=== PATIENT | female | born 1975 | race Caucasian/White ===

== ENCOUNTER 2021-09-27 00:51 | Day surgery (SDC) | payer OTHER, SELFPAY ==
[2021-09-17 10:02] VITALS: BMI 35.5
--- NOTE | 2021-09-27 08:18 | WPDANESEPPF ---
Anes - Initial Pre Proc Eval Procedure: Operation Date: 09/27/21 11:30 Proposed Procedures p Screening Colonoscopy - Bartolo Marina MD Date/Time: 09/27/21 08:18 Surgeon: Bartolo Marina MD Pre Op Diagnosis: neoplasm screening Patient Data Age: 46 Gender: F Height: 1.68 m Weight: 99.8 kg Allergies Allergy/AdvReac Type Severity Reaction Status Date / Time Quinolones Allergy Mild Swelling Verified 09/27/21 10:31 cefuroxime Allergy Unknown Skin Verified 09/27/21 10:31 Reaction ciprofloxacin Allergy Unknown Unknown Verified 09/27/21 10:31 erythromycin base Allergy Unknown Skin Verified 09/27/21 10:31 Reaction sulfamethizole Allergy Unknown Skin Verified 09/27/21 10:31 Reaction tetanus toxoid, adsorbed Allergy Unknown ?REACTION--HAPPENED Verified 09/27/21 10:31 CHILD Tetanus Vaccines and Toxoid Allergy Unknown Unknown Verified 09/27/21 10:31 NKFA Allergy Unknown Unknown Uncoded 09/27/21 10:31 Home Medications Medication Instructions Recorded Confirmed Type cyclobenzaprine 10 mg tablet 10 mg PO TID PRN #30 tablet 09/10/20 09/27/21 Rx meloxicam 15 mg tablet 15 mg PO DAILY #90 tablet 12/31/20 09/27/21 Rx albuterol sulfate 90 mcg/actuation 2 puff INHALATION Q4H PRN #8.5 g 07/12/21 09/27/21 Rx aerosol inhaler alprazolam 0.25 mg tablet 0.25 mg PO TID PRN #30 tablet 07/12/21 09/27/21 Rx clonidine HCl 0.1 mg tablet 0.1 mg PO .PRN tablet 07/12/21 09/27/21 History pantoprazole 40 mg tablet,delayed 40 mg PO BID 90 Days #180 tablet 07/12/21 09/27/21 Rx release tramadol 50 mg tablet 100 mg PO Q8H PRN tablet 07/12/21 09/27/21 History duloxetine 30 mg capsule,delayed 30 mg PO DAILY #90 cap 08/19/21 09/27/21 Rx release Patient hx anesthesia problems: none Family hx anesthesia problems: none Results Review: All pre-operative results and documents have been reviewed as part of the pre-operative evaluation. 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 Surgical History Surgical History (Updated 04/29/21 @ 12:48 by Raj Ventura MD) H/O abdominoplasty H/O hand surgery H/O hysterectomy for benign disease H/O unilateral oophorectomy History of bladder suspension procedure Family History Family History (Updated 01/09/18 @ 12:06 by DOCTOR UNKNOWN) Father Acute myocardial infarction Family history of cardiovascular disease Other Hypertension Social History Social History (Reviewed 07/12/21 @ 11:53 by Latonia Castellanos [facility]) Smoking status: Never smoker Alcohol intake: current Drinks per week: 4 Alcohol use details: 1-2 glasses of wine 3 times weekly Substance use: current Substance use type: marijuana Other substance usage details: daily use Living arrangements: with family Spiritual care concerns: No Anes - Eval Final PreProcedure Day of Procedure 09/27/21 08:18 Patient weight: obese Heart: regular rate and rhythm Lungs: clear to auscultation and normal air movement Airway: Mallampati scale class II Neurological: alert and oriented Last oral intake: >/= 8 hours ASA classification: III Emergent: no Anesthetic plan: proceed Anesthesia type and monitoring: general GIVS and standard monitoring Results Review: All pre-operative results and documents have been reviewed as part of the pre-operative evaluation. Informed Consent: The patient's anesthetic plan and its attendant risks and benefits were discussed with the patient/family/POA. Questions were solicited and answers provided to the satisfaction of the patient/family/POA.
[2021-09-27 10:25] VITALS: BP 136/75; PULSE 60; RESP 18; TEMP 36.6; O2SAT 100; BMI 35.0
[2021-09-27] MEDS: LACTATED RINGERS 1,000 ML 150 ML IV CONT (10:42)
--- NOTE | 2021-09-27 11:07 | PM.HPGS ---
History of Present Illness History of Present Illness Consent: Risks, benefits, and alternatives have been discussed and questions answered. Patient agrees to proceed with procedure. Chief complaint: neoplasm screening Narrative: An Paz is a 46 year old female here for first screening colonoscopy Review of Systems Constitutional: Constitutional: Denies headache(s) and Denies weakness Eyes: Eyes: Denies blurry vision ENT: Reports Normal hearing present, Denies headache(s) and Denies neck pain Cardiovascular: Cardiovascular: Denies chest pain and Denies dyspnea Respiratory: Respiratory: Denies dyspnea Gastrointestinal: Gastrointestinal: Reports no additional gastrointestinal complaints Genitourinary: Genitourinary: Denies dysuria Musculoskeletal: Musculoskeletal: Denies neck pain Integumentary/Breasts: Skin/Breast: Denies dry skin Neurologic: Reports Normal hearing present, Denies headache(s) and Denies weakness Psychiatric: Psychiatric: Denies anxiety Endocrine: Endocrine: Denies change in body appearance Hematologic/Lymphatic: Hematologic/Lymphatic: Denies easy bleeding Allergic/Immunologic: Allergic/Immunologic: Denies urticaria PMF Past Medical History Medical History (Updated 09/27/21 @ 11:08 by Bartolo Marina MD) Asthma, mild intermittent Chronic pain Colon cancer screening GERD (gastroesophageal reflux disease) Obesity 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 Surgical History Surgical History (Updated 04/29/21 @ 12:48 by Raj Ventura MD) H/O abdominoplasty H/O hand surgery H/O hysterectomy for benign disease H/O unilateral oophorectomy History of bladder suspension procedure Family History Family History (Updated 01/09/18 @ 12:06 by DOCTOR UNKNOWN) Father Acute myocardial infarction Family history of cardiovascular disease Other Hypertension Social History Social History Smoking status: Never smoker Alcohol intake: current Drinks per week: 4 Alcohol use details: 1-2 glasses of wine 3 times weekly Substance use: current Substance use type: marijuana Other substance usage details: daily use Living arrangements: with family Spiritual care concerns: No Meds Home Medications and Allergies Home Medications Medication Instructions Recorded Confirmed Type cyclobenzaprine 10 mg tablet 10 mg PO TID PRN #30 tablet 09/10/20 09/27/21 Rx meloxicam 15 mg tablet 15 mg PO DAILY #90 tablet 12/31/20 09/27/21 Rx albuterol sulfate 90 mcg/actuation 2 puff INHALATION Q4H PRN #8.5 g 07/12/21 09/27/21 Rx aerosol inhaler alprazolam 0.25 mg tablet 0.25 mg PO TID PRN #30 tablet 07/12/21 09/27/21 Rx clonidine HCl 0.1 mg tablet 0.1 mg PO .PRN tablet 07/12/21 09/27/21 History pantoprazole 40 mg tablet,delayed 40 mg PO BID 90 Days #180 tablet 07/12/21 09/27/21 Rx release tramadol 50 mg tablet 100 mg PO Q8H PRN tablet 07/12/21 09/27/21 History duloxetine 30 mg capsule,delayed 30 mg PO DAILY #90 cap 08/19/21 09/27/21 Rx release Allergies Allergy/AdvReac Type Severity Reaction Status Date / Time Quinolones Allergy Mild Swelling Verified 09/27/21 10:31 cefuroxime Allergy Unknown Skin Verified 09/27/21 10:31 Reaction ciprofloxacin Allergy Unknown Unknown Verified 09/27/21 10:31 erythromycin base Allergy Unknown Skin Verified 09/27/21 10:31 Reaction sulfamethizole Allergy Unknown Skin Verified 09/27/21 10:31 Reaction tetanus toxoid, adsorbed Allergy Unknown ?REACTION--HAPPENED Verified 09/27/21 10:31 CHILD Tetanus Vaccines and Toxoid Allergy Unknown Unknown Verified 09/27/21 10:31 NKFA Allergy Unknown Unknown Uncoded 09/27/21 10:31 Vital Signs Vital Signs - 24 hr 09/27/21 10:25 Temperature 97.9 F Pulse Rate 60 Respiratory Rate 18 Blood Pressure 136/75 Pulse Oximetry 100 Exam Const: Gen
[2021-09-27 11:26] VITALS: BP 114/74; PULSE 57; RESP 16; O2SAT 100
[2021-09-27 11:36] VITALS: BP 125/74; PULSE 51; RESP 15; O2SAT 99
[2021-09-27 11:46] VITALS: BP 130/75; PULSE 50; RESP 12; O2SAT 100
== END 2021-09-27 12:03 | disposition home or self-care (01) ==
PROVIDERS: PCP Family Medicine; Visit Provider Internal Medicine Gastroenterology
PROC: 0DJD8ZZ Inspection of Lower Intestinal Tract, Via Natural or Artificial Opening Endoscopic (ICD-10-PCS; CPT 45378; principal; 2021-09-27 11:30)
DX: Z12.11 Encounter for screening for malignant neoplasm of colon (principal); D12.3 Benign neoplasm of transverse colon; K57.30 Diverticulosis of large intestine without perforation or abscess without bleeding; K64.8 Other hemorrhoids; K21.9 Gastro-esophageal reflux disease without esophagitis; J45.909 Unspecified asthma, uncomplicated
CPT/HCPCS: 45380; 88305; J2704; J7120

== ENCOUNTER 2022-11-11 04:51 | Emergency (ER) | payer OTHER, SELFPAY ==
[2022-11-11] VITALS (19 sets, daily range): BP systolic 127–141; BP diastolic 69–91; PULSE 66–80; RESP 9–18; TEMP 37.1; O2SAT 95–100
--- NOTE | ~2022-11-11 | CT_ITS ---
CT Abdomen and Pelvis with contrast. History: Abdominal pain. Spiral CT of the abdomen and pelvis was performed after the administration of intravenous contrast. 1 00 cc of Omnipaque 350 was administered intravenously without complication. Dose reduction technique was used on this scan by utilizing automated exposure control and iterative reconstruction technique. The dose-length product (DLP) was 960.13 mGy-cm. COMPARISON: 05/07/2012 Findings: Scans through the lung bases demonstrate mild atelectatic change. The liver, spleen, pancreas, gallbladder, adrenals and kidneys are within normal limits. No evidence of aortic aneurysm. No lymphadenopathy is seen. There is no evidence of bowel obstruction. There is inflammatory changes small amount of pericolonic fluid centered at the proximal sigmoid colon with underlying diverticular disease. No abscess or free air. Small fat-containing ventral/umbilical hernia noted.. Images through the pelvis were performed. Urinary bladder unremarkable. Patient is post hysterectomy. No pelvic mass seen. No ascites is seen. Impression: Acute sigmoid diverticulitis. No abscess or free air. Small fat-containing ventral hernia, unchanged. Reviewed, dictated and finalized at location . RUCTIONAL SPECIALIST Impression: Acute sigmoid diverticulitis. No abscess or free air. Small fat-containing ventral hernia, unchanged.
[2022-11-11 05:52] LABS: Basophils Absolute Auto 0.1 K/mm3 (0.0-0.1); Basophils Percent Auto 0.5 % (0.2-1.2); Eosinophils Absolute Auto 0.1 K/mm3 (0-0.3); Eosinophils Percent Auto 1.3 % (0-4.4); Hematocrit 39.8 % (37.0-47.0); Immature Granulocyte Absolute 0.03 K/mm3 (0.00-0.031); Immature Granulocyte Percent A 0.3 % (0-0.5); Lymphocytes Absolute Auto 1.14 K/mm3 (0.9-3.2); Lymphocytes Percent Auto 10.9 % (18.3-44.2); Mean Corpuscular HGB Conc 32.7 g/dl (32-36); Mean Corpuscular Hemoglobin 31.1 pg (26-34); Mean Corpuscular Volume 95.2 fl (80-100); Mean Platelet Volume 10.5 fl (7.4-10.4); Monocytes Absolute Auto 1.1 K/mm3 (0.1-0.6); Monocytes Percent Auto 10.4 % (2.6-8.5); Neutrophils Percent Auto 76.6 % (45.5-73.1); Platelet Count Result 218 k/mm3 (150-375); Red Blood Count 4.18 M/mm3 (4.2-5.4); Red Cell Distribution Width 12.1 % (11.5-14.5); White Blood Count 10.4 K/mm3 (4.5-10.0)
[2022-11-11] MEDS: MORPHINE SULFATE (*CRX) 4 MG/ML INJ IV PUSH ×2 (06:08→07:45)
[2022-11-11] MEDS: ONDANSETRON INJ 4 MG/2 ML VIAL IV PUSH (06:08)
[2022-11-11 06:11] LABS: Alanine Aminotransferase 22 U/L (6-35); Albumin Level 4.3 g/dL (3.5-5.1); Alkaline Phosphatase 53 U/L (38-126); Anion Gap 5 mmol/L (8-16); Aspartate Amino Transferase 29 U/L (14-36); Bilirubin,Total 0.8 mg/dL (0.2-1.3); Blood Urea Nitrogen 11 mg/dL (7-17); Calcium 8.7 mg/dL (8.4-10.2); Carbon Dioxide 25 mmol/L (22-30); Chloride 102 mmol/L (98-107); Estimated CRCL calculation 120 ml/min; Estimated Glomerular Filt Rate > 60; Glucose 115 mg/dL (65-110); Potassium 4.2 mmol/L (3.4-5.0); Sodium 132 mmol/L (137-145)
[2022-11-11 06:22] LABS: Appearance Urine Clear (Clear); Bilirubin Urine Negative (Negative); Blood Urine Trace-intact (Negative); Color Urine Yellow (Yellow); Glucose Urine UA Negative (Negative); Ketones Urine Negative (Negative); Leukocyte Esterase Ur Negative LEU/UL (Negative); Nitrate Urine Negative (Negative); Protein Urine Negative (Negative); Specific Grav Ur <= 1.005 (1.001-1.035); Urobilinogen Urine 0.2 mg/dL (<2.0)
[2022-11-11 06:42] LABS: Mucus Urine Rare /lpf; Squamous Epithelial Cell Urine Rare /hpf (Few); WBC Urine 0-3 /hpf
[2022-11-11 06:45] LABS: Add Urine Microscopic? YES
[2022-11-11] MEDS: AMOXICILLIN/CLAVULANATE K 875-125 MG TAB 1 TABLET PO (07:04)
--- NOTE | 2022-11-11 07:10 | PC.NURSE ---
Patient report recieved from CATRINA Holden. All questions answered and care of patient assumed.
--- NOTE | 2022-11-11 07:10 | ED.ABDPAIN ---
HPI - Abdominal Pain General Chief Complaint: Abdominal Pain Stated Complaint: abd pain Time Seen by Provider: 11/11/22 05:13 History of Present Illness HPI narrative: Last day or so she has been having pain in her left lower quadrant, with nausea vomiting, this feels like when she has diverticulitis. No fevers. Overall feeling unwell Related Data Home Medications Medication Instructions Recorded Confirmed clonidine HCl 0.1 mg tablet 0.1 mg PO .PRN 07/12/21 11/22/21 tramadol 50 mg tablet 100 mg PO Q8H PRN Pain 07/12/21 11/22/21 Allergies Allergy/AdvReac Type Severity Reaction Status Date / Time Quinolones Allergy Mild Swelling Verified 11/11/22 05:01 cefuroxime Allergy Unknown Skin Verified 11/11/22 05:01 Reaction ciprofloxacin Allergy Unknown Unknown Verified 11/11/22 05:01 erythromycin base Allergy Unknown Skin Verified 11/11/22 05:01 Reaction sulfamethizole Allergy Unknown Skin Verified 11/11/22 05:01 Reaction tetanus toxoid, adsorbed Allergy Unknown ?REACTION--HAPPENED Verified 11/11/22 05:01 CHILD Tetanus Vaccines and Toxoid Allergy Unknown Unknown Verified 11/11/22 05:01 NKFA Allergy Unknown Unknown Uncoded 09/27/21 10:31 Review of Systems Review of Systems: CONST: No fever. HEENT: No sore throat C/V: No chest pain RESP: No cough GI: Reports abdominal pain, nausea, vomiting : No dysuria. M/S: No joint pain. SKIN: No rash. 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 Surgical History Surgical History H/O abdominoplasty H/O hand surgery H/O hysterectomy for benign disease H/O unilateral oophorectomy History of bladder suspension procedure Family History Family History Father Acute myocardial infarction Family history of cardiovascular disease Other Hypertension Social History Social History Alcohol intake: current Drinks per week: 4 Alcohol use details: 1-2 glasses of wine 3 times weekly Substance use: current Substance use type: marijuana Other substance usage details: daily use Living arrangements: with family Spiritual care concerns: No Exam Narrative: EXAMINATION OF ORGAN SYSTEMS/BODY AREAS: Constitutional: Vital signs per nursing GENERAL: Appears uncomfortable HEAD: Normal with no signs of head trauma. EYES: EOMI, conjunctiva normal ENT: Hearing grossly intact LUNGS: Nonlabored breathing. HEART: [Regular rate and rhythm] ABD: [Soft], tender palpation left lower quadrant EXT: Normal range of motion SKIN: [No rashes or lesions.] NEURO: [Alert and oriented x 3. No gross focal sensory or strength deficits.] PSYCH: Normal affect Course Vital Signs Vital signs: Vital Signs Temperature 98.8 F 11/11/22 04:55 Pulse Rate 80 11/11/22 04:55 Respiratory Rate 18 11/11/22 04:55 Blood Pressure 141/91 H 11/11/22 04:55 Pulse Oximetry 99 11/11/22 04:55 Oxygen Delivery Room Air 11/11/22 04:55 Temperature 98.8 F 11/11/22 04:55 Pulse Rate 67 11/11/22 06:16 Respiratory Rate 11 L 11/11/22 06:16 Blood Pressure 133/86 11/11/22 06:16 Pulse Oximetry 98 11/11/22 06:16 Oxygen Delivery Room Air 11/11/22 04:55 MDM - Abdominal Pain MDM Narrative Medical decision making narrative: Electronic medical record was reviewed. Patient presented to the ED with complaint of [abdominal pain and vomiting]. Vitals [were within acceptable limits]. Physical exam revealed [tenderness to palpation in left lower quadrant]. Based on the patient's history and physical
[2022-11-11] MEDS: DICYCLOMINE HCL 10 MG CAPSULE 20 MG PO (07:46)
== END 2022-11-11 08:33 | disposition home or self-care (01) ==
PROVIDERS: Emergency Provider Emergency Medicine; PCP Family Medicine
DX: K57.32 Diverticulitis of large intestine without perforation or abscess without bleeding (principal); J45.20 Mild intermittent asthma, uncomplicated; K21.9 Gastro-esophageal reflux disease without esophagitis; E66.9 Obesity, unspecified; Z68.36 Body mass index [BMI] 36.0-36.9, adult; Z90.710 Acquired absence of both cervix and uterus; Z90.721 Acquired absence of ovaries, unilateral; K43.9 Ventral hernia without obstruction or gangrene
CPT/HCPCS: 36415; 74177; 80053; 81001; 85025; 96374; 96375; 96376; 99284; A9270; J2270; J2405; Q9967

== ENCOUNTER 2023-05-22 09:33 | Outpatient (CLI) | payer OTHER, SELFPAY ==
[2023-05-22 13:10] LABS: Alanine Aminotransferase 24 U/L (6-35); Albumin Level 4.2 g/dL (3.5-5.1); Alkaline Phosphatase 56 U/L (38-126); Anion Gap 2 mmol/L (8-16); Aspartate Amino Transferase 41 U/L (14-36); Bilirubin,Total 0.7 mg/dL (0.2-1.3); Blood Urea Nitrogen 20 mg/dL (7-17); Calcium 9.6 mg/dL (8.4-10.2); Carbon Dioxide 32 mmol/L (22-30); Chloride 100 mmol/L (98-107); Cholesterol 246 mg/dL (0-200); Estimated Glomerular Filt Rate > 60; Glucose 114 mg/dL (65-110); HDL Direct 56 mg/dL; Sodium 134 mmol/L (137-145); Triglycerides 94 mg/dL (<150)
[2023-05-22 13:22] LABS: LDL Cholesterol Direct 146 mg/dL
[2023-05-23 00:28] LABS: Hemoglobin A1C 5.6 % (<5.7)
== END 2023-05-22 09:34 | disposition home or self-care (01) ==
LOC: ANHGOSHLAB 09:34
PROVIDERS: PCP Family Medicine; Visit Provider Family Medicine
DX: R73.03 Prediabetes (principal); E78.5 Hyperlipidemia, unspecified
CPT/HCPCS: 36415; 80053; 80061; 83036

== ENCOUNTER 2024-02-27 12:12 | Emergency (ER) | payer OTHER, SELFPAY ==
--- NOTE | ~2024-02-27 | CT_ITS ---
EXAMINATION: CT abdomen pelvis w con DATE: 02/27/2024 13:05 INDICATION: Diverticulitis. TECHNIQUE: Computed tomography (CT) of the abdomen and pelvis was performed with 100 mL Omnipaque 350 intravenous contrast. Automated exposure control and iterative reconstruction technique were employe d. The dose-length product was 1188.04 mGy-cm. COMPARISON: CT abdomen and pelvis 11/11/2022 FINDINGS: The visualized portions of the lung bases demonstrate mild atelectasis. No pleural effusion . The heart size is normal. No pericardial effusion. The liver, gallbladder, spleen, pancreas, adrena l glands, and kidneys are normal. There are scattered diverticula in the colon. There is fat strandin g adjacent to the distal descending colon with wall thickening of the colon, consistent with divertic ulitis. The appendix is normal. There are no pathologically enlarged lymph nodes. There is no free in traperitoneal fluid. There is severe thoracic and lumbar spondylosis. IMPRESSION: 1. Diverticulitis of distal descending colon. No perforation or abscess. Reviewed, dictated and finalized at location A.
[2024-02-27 12:18] VITALS: BP 123/69; PULSE 74; RESP 15; O2SAT 100
[2024-02-27 12:22] VITALS: TEMP 37.2
--- NOTE | 2024-02-27 12:37 | ED.ABDPAIN ---
HPI - Abdominal Pain General Chief Complaint: Abdominal Pain <RAYRAY García Last Filed: 02/27/24 15:51> Stated Complaint: abd pain <RAYRAY García Last Filed: 02/27/24 15:51> Time Seen by Provider: 02/27/24 12:16 <Yaima Strange PA-C - Last Filed: 02/27/24 15:51> History of Present Illness HPI narrative: 48-year-old female with a history of diverticulitis presents emergency department for left-sided abdominal pain that started today. Patient states 10 days ago she began having left-sided abdominal pain and called her PCP who called her in Augmentin. States she took the antibiotics as directed with improvement. Starting antibiotics a couple days ago has been asymptomatic for the past 2 days, however pain started again today and has been significantly worse. She called her PCP was advised to come to the ED for further evaluation. She also states her PCP called in another round of Augmentin and Flagyl for her to take which she has yet to pick this up. She is reporting some associated nausea and diarrhea, no emesis. Denies fever, dysuria or hematuria. She reports a prior hysterectomy and multiple laparoscopic ease. States she had a colonoscopy 2 years ago which showed 3 polyps, otherwise unremarkable. <RAYRAY García Last Filed: 02/27/24 15:51> Related Data Home Medications: Home Medications Medication Instructions Recorded Confirmed clonidine HCl 0.1 mg tablet 0.1 mg PO .PRN 07/12/21 11/22/21 tramadol 50 mg tablet 100 mg PO Q8H PRN Pain 07/12/21 11/22/21 <Yaima Strange PA-C - Last Filed: 02/27/24 15:51> Allergies/Adverse Reactions: Allergies Allergy/AdvReac Type Severity Reaction Status Date / Time Quinolones Allergy Mild Swelling Verified 12/06/23 10:46 cefuroxime Allergy Unknown Skin Verified 12/06/23 10:46 Reaction ciprofloxacin Allergy Unknown Unknown Verified 12/06/23 10:46 erythromycin base Allergy Unknown Skin Verified 12/06/23 10:46 Reaction sulfamethizole Allergy Unknown Skin Verified 12/06/23 10:46 Reaction tetanus toxoid, adsorbed Allergy Unknown ?REACTION--HAPPENED Verified 12/06/23 10:46 CHILD Tetanus Vaccines and Toxoid Allergy Unknown Unknown Verified 12/06/23 10:46 NKFA Allergy Unknown Unknown Uncoded 12/06/23 10:46 <Yaima Strange PA-C - Last Filed: 02/27/24 15:51> Review of Systems Review of Systems: CONSTITUTIONAL: Denies fever, chills, or sweats. EYES: Denies visual changes, redness, or discharge. ENT: Denies rhinorrhea, congestion, sore throat, or otalgia. CARDIOVASCULAR: Denies chest pain, palpitations, or edema. RESPIRATORY: Denies cough or dyspnea. GASTROINTESTINAL: See HPI GENITOURINARY: Denies dysuria or hematuria. SKIN: Denies rash or itching. MUSCULOSKELETAL: Denies back pain, joint pain, or myalgia. NEUROLOGIC: Denies headache, numbness, or weakness. PSYCHIATRIC: Denies anxiety or depression. 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
[2024-02-27] MEDS: SODIUM CHLORIDE 0.9% IV 1,000 ML 999 ML IV CONT (12:41)
[2024-02-27] MEDS: ONDANSETRON INJ 4 MG/2 ML VIAL IV PUSH ×2 (12:41→13:45)
[2024-02-27] MEDS: MORPHINE SULFATE (*CRX) 4 MG/ML INJ IV PUSH (12:42)
[2024-02-27 12:59] LABS: Basophils Absolute Auto 0.1 K/mm3 (0.0-0.1); Basophils Percent Auto 0.6 % (0.2-1.2); Eosinophils Absolute Auto 0.2 K/mm3 (0-0.3); Eosinophils Percent Auto 1.8 % (0-4.4); Hematocrit 37.2 % (37.0-47.0); Hemoglobin 12.2 g/dL (12.0-15.0); Immature Granulocyte Absolute 0.03 K/mm3 (0.00-0.031); Immature Granulocyte Percent A 0.3 % (0-0.5); Lymphocytes Absolute Auto 1.76 K/mm3 (0.9-3.2); Lymphocytes Percent Auto 17.4 % (18.3-44.2); Mean Corpuscular HGB Conc 32.8 g/dl (32-36); Mean Corpuscular Hemoglobin 31.4 pg (26-34); Mean Corpuscular Volume 95.6 fl (80-100); Mean Platelet Volume 10.7 fl (7.4-10.4); Monocytes Percent Auto 9.4 % (2.6-8.5); Neutrophils Absolute Auto 7.1 K/mm3 (1.3-6.7); Neutrophils Percent Auto 70.5 % (45.5-73.1); Platelet Count Result 221 k/mm3 (150-375); Red Blood Count 3.89 M/mm3 (4.2-5.4); Red Cell Distribution Width 12.4 % (11.5-14.5); White Blood Count 10.1 K/mm3 (4.5-10.0)
[2024-02-27 13:01] LABS: Estimated CRCL calculation 106 ml/min; Estimated Glomerular Filt Rate > 60
[2024-02-27 13:11] LABS: Lactic Acid Reflex 1.3 mmol/L (0.7-2.0)
[2024-02-27 13:12] LABS: Alanine Aminotransferase 18 U/L (6-35); Albumin Level 3.9 g/dL (3.5-5.1); Alkaline Phosphatase 55 U/L (38-126); Anion Gap 8 mmol/L (4-12); Aspartate Amino Transferase 19 U/L (14-36); Bilirubin,Total 0.7 mg/dL (0.2-1.3); Blood Urea Nitrogen 10 mg/dL (7-17); Calcium 8.9 mg/dL (8.4-10.2); Carbon Dioxide 26 mmol/L (22-30); Chloride 103 mmol/L (98-107); Estimated CRCL calculation 106 ml/min; Estimated Glomerular Filt Rate > 60; Glucose 107 mg/dL (65-110); Lipase 37 U/L (23-300); Potassium 3.9 mmol/L (3.4-5.0); Sodium 137 mmol/L (137-145)
[2024-02-27] MEDS: HYDROmorphone HCL INJ (*CRX) 1 MG/ML SYR 0.5 MG IV PUSH ×2 (13:36→15:53)
[2024-02-27 14:01] VITALS: BP 119/75; PULSE 63; RESP 14; O2SAT 98
[2024-02-27] MEDS: SULFAMETHOXAZOLE/TRIMETHOPRIM 800/160 MG DS TABLET 1 TAB PO (14:21)
[2024-02-27] MEDS: metroNIDAZOLE 500 MG TABLET PO (14:21)
[2024-02-27 15:19] LABS: Appearance Urine Clear (Clear); Bilirubin Urine Negative (Negative); Blood Urine Negative (Negative); Color Urine Yellow (Yellow); Glucose Urine UA Negative (Negative); Ketones Urine Negative (Negative); Leukocyte Esterase Ur Negative LEU/UL (Negative); Nitrate Urine Negative (Negative); Protein Urine Negative (Negative); Specific Grav Ur 1.055 (1.001-1.035); Urobilinogen Urine 0.2 mg/dL (<2.0); pH Urine 7.5 (5.0-9.0)
[2024-02-27 15:21] LABS: Add Urine Microscopic? NO
[2024-02-27 15:44] VITALS: BP 107/55; PULSE 65; RESP 13; O2SAT 98
== END 2024-02-27 16:16 | disposition home or self-care (01) ==
PROVIDERS: Emergency Provider Physician Assistant; PCP Family Medicine
DX: K57.92 Diverticulitis of intestine, part unspecified, without perforation or abscess without bleeding (principal); R10.9 Unspecified abdominal pain; E66.9 Obesity, unspecified; Z68.38 Body mass index [BMI] 38.0-38.9, adult; K21.9 Gastro-esophageal reflux disease without esophagitis
CPT/HCPCS: 36415; 74177; 80053; 81003; 81025; 83605; 83690; 85025; 96361; 96374; 96375; 96376; 99284; A9270; J1170; J2270; J2405; J7030; Q9967

== ENCOUNTER 2024-05-23 09:54 | Outpatient (CLI) | payer OTHER, SELFPAY ==
[2024-05-23 13:29] LABS: Basophils Absolute Auto 0.1 K/mm3 (0.0-0.1); Basophils Percent Auto 0.8 % (0.2-1.2); Eosinophils Absolute Auto 0.2 K/mm3 (0-0.3); Eosinophils Percent Auto 3.1 % (0-4.4); Hematocrit 40.4 % (37.0-47.0); Hemoglobin 13.2 g/dL (12.0-15.0); Immature Granulocyte Absolute 0.02 K/mm3 (0.00-0.031); Immature Granulocyte Percent A 0.3 % (0-0.5); Lymphocytes Absolute Auto 1.86 K/mm3 (0.9-3.2); Lymphocytes Percent Auto 24.3 % (18.3-44.2); Mean Corpuscular HGB Conc 32.7 g/dl (32-36); Mean Corpuscular Hemoglobin 30.6 pg (26-34); Mean Corpuscular Volume 93.5 fl (80-100); Mean Platelet Volume 11.4 fl (7.4-10.4); Monocytes Absolute Auto 0.6 K/mm3 (0.1-0.6); Monocytes Percent Auto 7.6 % (2.6-8.5); Neutrophils Absolute Auto 4.9 K/mm3 (1.3-6.7); Neutrophils Percent Auto 63.9 % (45.5-73.1); Platelet Count Result 235 k/mm3 (150-375); Red Blood Count 4.32 M/mm3 (4.2-5.4); Red Cell Distribution Width 12.4 % (11.5-14.5); White Blood Count 7.7 K/mm3 (4.5-10.0)
[2024-05-23 13:39] LABS: Alanine Aminotransferase 17 U/L (6-35); Albumin Level 4.4 g/dL (3.5-5.1); Alkaline Phosphatase 57 U/L (38-126); Anion Gap 9 mmol/L (4-12); Aspartate Amino Transferase 57 U/L (14-36); Bilirubin,Total 0.6 mg/dL (0.2-1.3); Blood Urea Nitrogen 24 mg/dL (7-17); Calcium 9.4 mg/dL (8.4-10.2); Carbon Dioxide 31 mmol/L (22-30); Chloride 99 mmol/L (98-107); Cholesterol 224 mg/dL (0-200); Estimated Glomerular Filt Rate > 60; Glucose 89 mg/dL (65-110); HDL Direct 43 mg/dL; Potassium 4.3 mmol/L (3.4-5.0); Sodium 139 mmol/L (137-145); Triglycerides 88 mg/dL (<150)
[2024-05-23 13:53] LABS: LDL Cholesterol Direct 129 mg/dL
[2024-05-23 14:07] LABS: Thyroid Stimulating Hormone 0.602 uIU/mL (0.465-4.680)
[2024-05-23 14:30] LABS: Hepatitis B Surface Antigen Negative (Negative)
[2024-05-23 14:36] LABS: HAV RESULT Negative (Negative); Hepatitis B Core IgM Result Negative (Negative)
[2024-05-23 14:46] LABS: Hemoglobin A1C 5.5 % (<5.7)
[2024-05-23 14:48] LABS: Hepatitis C Virus Antibody Negative (Negative)
== END 2024-05-23 09:55 | disposition home or self-care (01) ==
LOC: ANHGOSHLAB 09:55
PROVIDERS: PCP Family Medicine; Visit Provider Family Medicine
DX: R53.83 Other fatigue (principal); R73.03 Prediabetes; R74.01 Elevation of levels of liver transaminase levels
CPT/HCPCS: 36415; 80053; 80061; 80074; 82607; 82728; 83036; 84443; 85025

== ENCOUNTER 2024-06-05 14:53 | Outpatient (CLI) | payer OTHER, SELFPAY ==
[2024-06-05 19:08] LABS: Basophils Absolute Auto 0.1 K/mm3 (0.0-0.1); Basophils Percent Auto 0.7 % (0.2-1.2); Eosinophils Absolute Auto 0.3 K/mm3 (0-0.3); Eosinophils Percent Auto 2.8 % (0-4.4); Hematocrit 40.6 % (37.0-47.0); Hemoglobin 13.2 g/dL (12.0-15.0); Immature Granulocyte Absolute 0.04 K/mm3 (0.00-0.031); Immature Granulocyte Percent A 0.3 % (0-0.5); Lymphocytes Absolute Auto 2.82 K/mm3 (0.9-3.2); Lymphocytes Percent Auto 23.9 % (18.3-44.2); Mean Corpuscular HGB Conc 32.5 g/dl (32-36); Mean Corpuscular Hemoglobin 29.5 pg (26-34); Mean Corpuscular Volume 90.8 fl (80-100); Mean Platelet Volume 11.4 fl (7.4-10.4); Monocytes Absolute Auto 0.9 K/mm3 (0.1-0.6); Monocytes Percent Auto 7.6 % (2.6-8.5); Neutrophils Absolute Auto 7.6 K/mm3 (1.3-6.7); Neutrophils Percent Auto 64.7 % (45.5-73.1); Platelet Count Result 253 k/mm3 (150-375); Red Blood Count 4.47 M/mm3 (4.2-5.4); Red Cell Distribution Width 12.9 % (11.5-14.5); White Blood Count 11.8 K/mm3 (4.5-10.0)
[2024-06-05 20:16] LABS: Alanine Aminotransferase 21 U/L (6-35); Albumin Level 4.6 g/dL (3.5-5.1); Alkaline Phosphatase 58 U/L (38-126); Amylase 68 U/L (30-110); Anion Gap 13 mmol/L (4-12); Aspartate Amino Transferase 32 U/L (14-36); Bilirubin,Total 0.6 mg/dL (0.2-1.3); Blood Urea Nitrogen 20 mg/dL (7-17); Calcium 9.6 mg/dL (8.4-10.2); Carbon Dioxide 25 mmol/L (22-30); Chloride 101 mmol/L (98-107); Estimated Glomerular Filt Rate > 60; Glucose 96 mg/dL (65-110); Lipase 70 U/L (23-300); Potassium 4.1 mmol/L (3.4-5.0); Sodium 139 mmol/L (137-145)
== END 2024-06-05 14:54 | disposition home or self-care (01) ==
LOC: ANHGOSHLAB 14:54
PROVIDERS: PCP Family Medicine; Visit Provider Nurse Practitioner Family
DX: R10.9 Unspecified abdominal pain (principal); R19.7 Diarrhea, unspecified
CPT/HCPCS: 36415; 80053; 82150; 83690; 85025

== ENCOUNTER 2024-06-05 15:31 | Outpatient (CLI) | payer OTHER, SELFPAY ==
--- NOTE | ~2024-06-05 | CT_ITS ---
EXAMINATION: CT abdomen pelvis w con DATE: 06/05/2024 15:50 INDICATION: Diarrhea, unspecified. TECHNIQUE: Computed tomography (CT) of the abdomen and pelvis was performed with 100 mL Omnipaque 350 intravenous contrast. Automated exposure control and iterative reconstruction technique were employe d. The dose-length product was 992.86 mGy-cm. COMPARISON: CT abdomen and pelvis 02/27/2024 FINDINGS: The visualized portions of the lung bases are clear without pneumonia or pleural effusion. The heart size is normal. No pericardial effusion. There is fluid in the esophagus. The liver, gallbl adder, spleen, pancreas, adrenal glands, and kidneys are normal. There are scattered diverticula in t he colon without evidence of diverticulitis. The appendix is normal. There are no dilated loops of elia wel. There are surgical changes in the anterior abdominal wall. There is severe thoracic and lumbar s pondylosis. IMPRESSION: 1. No etiology for the patient's symptoms. Reviewed, dictated and finalized at location A.
== END 2024-06-05 15:32 ==
LOC: MICIMG 15:32
PROVIDERS: PCP Family Medicine; Visit Provider Nurse Practitioner Family
DX: R19.7 Diarrhea, unspecified (principal)
CPT/HCPCS: 74177; Q9967

== ENCOUNTER 2024-10-24 08:18 | Outpatient (CLI) | payer OTHER, SELFPAY ==
[2024-10-24 11:42] LABS: Alanine Aminotransferase 17 U/L (6-35); Alkaline Phosphatase 52 U/L (38-126); Anion Gap 5 mmol/L (4-12); Aspartate Amino Transferase 25 U/L (14-36); Blood Urea Nitrogen 16 mg/dL (7-17); Calcium 9.2 mg/dL (8.4-10.2); Carbon Dioxide 29 mmol/L (22-30); Chloride 105 mmol/L (98-107); Estimated Glomerular Filt Rate > 60; Glucose 83 mg/dL (65-110); Potassium 4.3 mmol/L (3.4-5.0); Sodium 139 mmol/L (137-145)
== END 2024-10-24 08:19 | disposition home or self-care (01) ==
LOC: ANHGOSHLAB 08:20
PROVIDERS: PCP Family Medicine; Visit Provider Family Medicine
DX: R74.01 Elevation of levels of liver transaminase levels (principal)
CPT/HCPCS: 36415; 80053

== ENCOUNTER 2025-05-29 09:49 | Outpatient (CLI) | payer OTHER, SELFPAY ==
--- OUTSIDE RECORDS SUMMARY | 2025-05-29 10:22 | XMS_ITS | Clinical Summary ---
Author Organization [facility] [employer] Address [address] [place] [address] Care Team Providers Care Slip Cover Maker Name Role Phone Unavailable Primary Care Provider Unavailabl e Source Comments [facility] [employer],non-owned Affiliates and Associated Physician Practices is amultiple site organization consisting of ambulatory clinics and hospital sitesin [place], [place] and [place]. This disclosure is being madepursuant to the Care Everywhere program and may not contain all information available regarding this patient. Last updated 18.[facility] [employer] Allergies Active Allergy Reactions Criticality Noted Date Comments Sulfamethoxazole W-Trimethoprim Rash Medium 12/02/2018 Cefuroxime Rash Medium 12/02/2018 Pt states she has taken keflex without reaction Ciprofloxacin Swelling 12/02/2018 Tetanus Toxoid Unknown 12/02/2018 Unknown reaction, told as child. Medications * Be aware that medications may not be up to date on this document. Alwaysverify current medications with the patient. DULOXETINE HCL PO Active Montelukast Sodium (SINGULAIR PO) Activ e pantoprazole EC (PROTONIX) 20 MG tablet Take 20 mg by mouth once daily Active Multiple Vitamin (MULTI VITAMIN PO) Active fluticasone propionate (FLONASE) 50 MCG/ACT nasal sprayIndications :Acute maxillary sinusitis, recurrence not specified Rumney 2 sprays into each nostril once daily 1 bottles 12/02/2018 Active MELOXICAM PO Active benzonatate (TESSALON) 200 MG capsuleIndicatio ns:Upper respiratory tract infection, unspecified type Take 1 capsule by mouth 3 times daily as needed for Cough 30 capsule 07/14/2019 Active albuterol HFA (PROVENTIL;ANDRY HANG;PROAIR) 108 (90 Base) MCG/ACT inhalerIndicatio ns:Wheezing Inhale 2 puffs by mouth every 6 hours as needed 1 Inhaler 07/14/2019 Active Family History Medical History Relation Name Comments Other - Cardiac Father Heart attack , with no previous hx of heart problems. 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 Gender Identity Not on file Sexual Orientation Not on file Last Filed Vital Signs Vital Sign Reading Time Taken Comments Blood Pressure 132/82 07/14/2019 2:31 PM CDT Pulse 69 07/14/2019 2:31 PM CDT Temperature 37.1 C (98.8 F) 07/14/2019 2:31 PM CDT Respiratory Rate 16 07/14/2019 2:31 PM CDT Oxygen Saturation 97% 07/14/2019 2:31 PM CDT Inhaled Oxygen Concentration - - Weight 106.6 kg (235 lb) 07/14/2019 2:31 PM CDT Height 167.6 cm (5' 6) 07/14/2019 2:31 PM CDT Body Mass Index 37.93 07/14/2019 2:31 PM CDT Plan of Treatment Health Maintenance Due Date Last Done Comments COLOGUARD (AGES 45-75) - COL ON CA SCREENING 1976 COLON MONITORING 1976 COLONOSCOPY - COLON CA SCREENING 1976 CT COLONOGRAPHY - COLON CA SCREENING 1976 Colorectal Cancer Screening 1976 FIT - COLON CA SCREENING 1976 FLEX SIG - COLON CA SCREENING 1976 LIPID TESTING 1976 MAMMOGRAM 1976 HIV SCREENING 02/27/1991 HEPATITIS C SCREENING 02/23/1994 DTAP/TDAP/TD VACCINES (1 - Tdap) 02/27/1995 HEPATITIS B VACCINE (1 of 3 - 19+ 3-dose series) 02/27/1995 SCREENING FOR DIABETES 12/02/2018 COVID-19 VACCINE ( - 2023-2 5 season) 2024 DEPRESSION SCREENING 10/09/2024 INFLUENZA VACCINE (#1) 2025 ZOSTER VACCINE (1 of 2) 02/27/2026 HIB VACCINE Aged Out No longer eligi ble based on patient's age to complete this topic HPV VACCINE Aged Out No longer eligi ble based on patient's age to complete this topic MENINGOCOCCAL (Group B) VACC INE SHARED DECISION-MAKING Aged Out No longer eligibl e based on patient's age to complete this topic MENINGOCOCCAL GROUPS A/C/Y/W VACCINE Aged Out No longer eligible b ased on patient's age to complete this topic Insurance
--- OUTSIDE RECORDS SUMMARY | 2025-05-29 10:22 | XMS_ITS | Encounter Summary ---
Author Organization [facility] Address [address] [place] [address] Phone Care Team Providers Care Bridge Attacher Name Role Phone Raj Ventura MD Primary Care Provider [phone] Encounter Details Date Type Department Care Team (Late st Contact Info) Description 2018 Orders Only [facility] ProviderAbdoul MD [address] [place] [id number] Social History Tobacco Use Types Packs/Day Years Used Date Smoking Tobacco: Former Comments Unknown Sex and Gender Information Value Date Recorded Sex Assigned at Not on file Legal Sex Female 2:35 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 Historical Provider LAB BLOOD ORDERABLES Chelly l Result documented in this encounter Visit Diagnoses Not on filedocumented in this encounter Care Teams Bridge Attacher Relationship Specialty Start Date End Date Raj Ventura MD PCP - General 02/28/18 documented as of this encounter
--- OUTSIDE RECORDS SUMMARY | 2025-05-29 10:22 | XMS_ITS | Encounter Summary ---
Author Organization [facility] Address [address] [place] [address] Phone Care Team Providers Care Manhole Builder Name Role Phone Raj Ventura MD Primary Care Provider [phone] Encounter Details Date Type Department Care Team (Late st Contact Info) Description 06/14/2023 Orders Only LUJAN OS PMR [phone] Scanning, Provider Social History Tobacco Use Types Packs/Day Years Used Date Smoking Tobacco: Former Cigarettes Q uit: 2017 Smokeless Tobacco: Never Alcohol Use Standard Drinks/Week Comments Yes 9 (1 standard drink = 0.6 oz pur e alcohol) AUDIT-C Answer Date Recorded Q1: How often do you have a drink containing alc ohol? Monthly or less 10/04/2022 Q2: How many drinks containi ng alcohol do you have on a typical day when you are drinking? 1 or 2 10/04/2022 Q3: How often do you have si x or more drinks on one occasion? Less than monthly 10/04/2022 Comments No Sex and Gender Information Value Date Recorded Sex Assigned at Not on file Legal Sex Female 2:35 AM LEASING AGENT Gender Identity Not on file Sexual Orientation Not on file Occupation Industry Job Start Date Job End Date Kumar Not on file Not on file Not on file documented as of this encounter Plan of Treatment Not on file documented as of this encounter Procedures Procedure Name Priority Date/Time Associated Diagnosis Comments SCAN - RADIOLOGY/IMAGING 06/14/2023 documented in this encounter Results * SCAN - RADIOLOGY/IMAGING (06/14/2023) Anatomical Region Laterality Modality Other us Provider Scanning Final Result documented in this encounter Visit Diagnoses Not on filedocumented in this encounter Care Teams Manhole Builder Relationship Specialty Start Date End Date Raj Ventura MD PCP - General 02/28/18 documented as of this encounter
--- OUTSIDE RECORDS SUMMARY | 2025-05-29 10:23 | XMS_ITS | Clinical Summary ---
Author Organization [facility] Address [address] [place] [address] Care Team Providers Care Chisel Worker Name Role Phone Raj Ventura MD Primary Care Provider [phone] Allergies Active Allergy Reactions Criticality Noted Date Comments Cefuroxime Rash Medium Ciprofloxacin Anaphylaxis,Swellin g High Throat swelling Nitrofurantoin Rash Medium 08/03/2018 Sulfamethoxazole-Trimetho prim Rash Medium 12/02/2018 Tetanus Vaccines And Toxoid Unknown Medium 08/03/2018 As child Medications DUL[address]etine [address] (CYMBALTA) 30 mg capsuleIndicati ons:Anxiety with Depression Take 1 capsule (30 mg total) by mouth nightly 07/23/20 18 Active empty container (NASAL SPRAY BOTTLE) bottleIndicatio ns:rhinitis 1 % as needed Acti ve ALPRAZolam (XANAX) 0.25 mg tabletIndicatio ns:anxiety Take 1 tablet (0.25 mg total) by mouth 3 (three) times a day as needed for anxiety Active ibuprofen (ibuprofen) 200 mg tab/cap Take 2 tablet/capsul e (400 mg total) by mouth every 6 (six) hours as needed for pain Active cannabidiol, CBD, (EPIDIOLEX) 100 mg/mL solution Take 5 mg/kg by mouth as needed (pain) Active pantoprazole DR (PROTONIX) 40 mg EC tabletIndicatio ns:Stress Ulcer Prophylaxis Take 1 tablet (40 mg total) by mouth nightly 12/05/19 20 Active hydroCHLOROthia zide (HYDRODIURIL) 12.5 mg tabletIndicatio ns:Edema Take 1 tablet (12.5 mg total) by mouth as needed 06/09/20 22 Active cyclobenzaprine (FLEXERIL) 10 mg tablet Take 1 tablet (10 mg total) by mouth as needed for muscle spasms 06/06/20 23 Active meloxicam (MOBIC) 15 mg tabletIndicatio ns:arthritis Take 1 tablet (15 mg total) by mouth nightly 07/05/20 23 Active magnesium gluconate 200 mg tabletIndicatio ns:hypomagnesem ia Take 1 tablet (200 mg total) by mouth nightly Active HYDROcodone-john paul taminophen (NORCO) 5-325 mg per tabletIndicatio ns:Pain Take 1-2 tablets by mouth every 4 (four) hours as needed for pain 15 tablet 08/23/20 23 Active acyclovir (ZOVIRAZ) 5 % creamIndication s:Herpes, vulvar Apply topically daily 5 g 2 09/20/20 23 Active estradioL (ESTRACE) 0.01 % (0.1 mg/gram) vaginal creamIndication s:Atrophy, vulva INSERT 2 GM VAGINALLY DAILY 127.5 g 4 12/05/19 24 Active cloNIDine (CATAPRES) 0.3 mg tabletIndicatio ns:Hot flashes Take 1 tablet (0.3 mg total) by mouth nightly 30 tablet 1 02/29/20 24 Active furosemide (LASIX) 20 mg tablet Take 1 tablet (20 mg total) by mouth 2 (two) times a day 20 tablet 04/10/20 20 021 Discontinued Active Problems Problem Noted Date Diagnosed Date Arthritis of carpometacarpal (CMC) joint of left thumb 07/24/2023 Cubital tunnel syndrome on left 07/24/2023 Abnormal mammogram 01/24/2023 Breast lesion 10/04/2022 Other synovitis and tenosynovitis, right hand Pain in soft tissues of limb 12/10/2019 Arthritis of carpometacarpal (CMC) joint of righ t thumb 10/16/2019 Overview (10/16/2019): Added automatically from request for surgery [id number] Hand pain, right 04/30/2018 Genital herpes simplex 12/21/2016 Fatigue 12/21/2016 Flushing 12/21/2016 Arthralgia of wrist 03/05/2013 Arthralgia of elbow 02/27/2013 Pelvic mass 05/15/2012 Medial epicondylitis of elbow 08/27/2010 Immunizations Immunization Administration Dates Next Due Influenza, Quadrivalent, Spl it, Preservative Free, Intramuscular 07/13/2020 Surgical History Surgery Date Site/Laterality Comments HYSTERECTOMY 10/09/2006 - 10/08/2007 Hysterectomy - (Added by TW Conv) OOPHORECTOMY 10/09/2007 - 10/08/2008 Oophorectomy - (Added by TW Conv) BELT ABDOMINOPLASTY 10/09/2002 - 10/08/2003 Abdominoplasty - (Added by TW Conv) LAPAROSCOPY x2 ULNAR NERVE TRANSPOSITION 2009? 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 with unspecified severity (HCC) Ulcer - (Added by TW Conv) Personal history of other di seases of the digestive system History of hemorrhoids - (Ad ded by TW Conv) Anxiety Arthritis Smoking Depression Family History Medical History Relation Name Comments Heart attack Father Family history of myocardial infarction - (Added by TW Conv) Hypertension Father Breast cancer Maternal Grandmother Heart disease Mother Hypertension Mother Uterine cancer Mother Anesthesia problems Neg Hx Ovarian cancer Neg Hx Thyroid cancer Neg Hx Relation Name Status Comments Brother Alive Father of [place] 61 Maternal Grandmother Mother Alive Social History Tobacco Use Types Packs/Day Years Used Date Smoking Tobacco: Former Cigarettes Q uit: 2017 Passive Smoke Exposure: Never Smokeless Tobacco: Never Tobacco Cessation:Counseling Given: Not Answered Alcohol Use Standard Drinks/Week Comments Yes 9 (1 standard drink = 0.6 oz pur e alcohol) AUDIT-C Answer Date Recorded Q1: How often do you have a drink containing alcohol? 4 or more times a week 08/02/2023 Q2: How many drinks containi ng alcohol do you have on a typical day when you are drinking? 1 or 2 3 Q3: How often do you have si x or more drinks on one occasion? Never 08/02/2023 Personal Safety Answer Date Recorded Have you ever been in or are you currently in a harmful physical or emotional relationship or is someone making you feel afraid or unsafe? Denies 08/23/2023 Comments No Sex and Gender Information Value Date Recorded Sex Assigned at Not on file Legal Sex Female 2:35 AM MAGNETIC RESONANCE IMAGING COORDINATOR Gender Identity Not on file Sexual Orientation Not on file Occupation Industry Job Start Date Job End Date José Not on file Not on file Not on file Obstetrics History Para Term AB IAB SAB Ectopic Multiple Livin g Live Births 1 1 1 1 1 Date Outcome GA Total Labor Labor/2nd/3rd Weight Sex Type Anes PTL Waleska A1 A5 Name Clin Term Last Filed Vital Signs Vital Sign Reading Time Taken Comments Blood Pressure 134/85 09/12/2023 9:19 AM MAGNETIC RESONANCE IMAGING COORDINATOR Pulse 57 09/12/2023 9:19 AM MAGNETIC RESONANCE IMAGING COORDINATOR Temperature 37 C (98.6 F) 09/12/2023 9:19 AM MAGNETIC RESONANCE IMAGING COORDINATOR Respiratory Rate 16 09/12/2023 9:19 AM MAGNETIC RESONANCE IMAGING COORDINATOR Oxygen Saturation 99% 09/12/2023 9:19 AM MAGNETIC RESONANCE IMAGING COORDINATOR Inhaled Oxygen Concentration - - Weight 104.3 kg (229 lb 14.4 oz) 09/12/2023 9:19 AM MAGNETIC RESONANCE IMAGING COORDINATOR Height 167.6 cm (5' 5.98) 09/12/2023 9:19 AM CS T Body Mass Index 37.12 09/12/2023 9:19 AM MAGNETIC RESONANCE IMAGING COORDINATOR Plan of Treatment Health Maintenance Due Date Last Done Comments Colon Cancer Screening-Colonoscopy 1975 Depression Screening 1975 Hepatitis C Screening 1975 DTaP/Tdap/Td Vaccine (1 - Tdap) 02/27/1987 Hepatitis B Screening 02/27/1994 Regular Well Visit/Exam 18-64 02/27/1994 Influenza Vaccine (#1) 2025 07/13/2020 Breast Cancer Screening-Mammogram 07/11/2025 07/11/2024, 07/03/2023, 06/09/2022, Additional history exists Cervical Cancer Screening Discontinued 09/12/2023 Pneumococcal vaccine <65 Aged Out No longer eligible based on patient's age to complete this topic Medical Devices Implanted Type Area Sawyer Helper Device Identifier Shelf Expiration Date Model / Serial / Lot [employer] [id number] Internalbrace Kit Hand Wrist Set Implant Ligament Augmentation - [id number] Implanted:Qty: 1 on 10/30/2019 by Todd Angulo MD at [facility] [employer] [id number] 09/07/2024 AR-8 978-CP / / [id number] [employer] Corkscrew Fiberwire 2.7mm 7mm 17.9mm Needle Wire Foot Ankle 2-0 [id number] - [id number] Implanted:Qty: 1 on 08/23/2023 by Todd Angulo MD at [facility] Left: Hand [employer] 02/06/2028 [id number] / / [id number] [employer] Corkscrew Fiberwire 2.7mm 7mm 17.9mm Needle Wire Foot Ankle 2-0 [id number] - [id number] Implanted:Qty: 1 on 08/23/2023 by Todd Angulo MD at [facility] Left: Hand [employer] 05/08/2028 [id number] / / [id number] Procedures Procedure Name Priority Date/Time Associated Diagnosis Comments SCREENING MAMMOGRAM BILATERAL W ALEXANDR Schedule Routine, Read Routine (OP Routine) 07/11/2024 7:45 AM CDT Screening mammogram, encounter for PAP AND HIGH RISK HPV, REFLEX TO GENOTYPING Routine 09/12/2023 1:00 PM MAGNETIC RESONANCE IMAGING COORDINATOR Surveillance Pap following abnormal vaginal Pap from Last 3 Months or Most Recently Relevant to Health Maintenance Results * Screening Mammogram Bilateral W Alexandr (07/11/2024 7:45 AM CDT) Anatomical Region Laterality Modality Breast Bilateral Mammography Narrative 07/11/2024 12:23 PM CDT Mammogram Technique: Bilateral Digital Breast Tomosynthesis, Bilateral C-view 2D Screening mammogram. Views obtained: bilateral craniocaudal and bilateral mediolateral oblique. Computer Aided Detection was performed. Mammogram Findings: The present examination has been compared to prior imaging studies performed at [facility] 06/24/[facility]22, and at [facility] on 01/23/2023 and 07/03/2023. There are scattered areas of fibroglandular density. There is no suspicious abnormality in either breast. Impression: There is no mammographic evidence of malignancy. Annual screening mammography is recommended. OVERALL FINAL ASSESSMENT: BI-RADS CATEGORY 1: Negative. Procedure Note Cydney Jacobs MD - 07/11/2024 Mammogram Technique: Bilateral Digital Breast Tomosynthesis, Bilateral C-view 2D Screening mammogram. Views obtained: bilateral craniocaudal and bilateral mediolateral oblique. Computer Aided Detection was performed. Mammogram Findings: The present examination has been compared to prior imaging studies performed at [facility] on 06/24/2022, [facility] on 01/23/2023 and 07/03/2023. There are scattered areas of fibroglandular density. There is no suspicious abnormality in either breast. Impression: There is no mammographic evidence of malignancy. Annual screening mammography is recommended. OVERALL FINAL ASSESSMENT: BI-RADS CATEGORY 1: Negative. us Self Screening Mammogram IMG MAMMO PROCEDURES Fi nal Result * Pap and High Risk HPV and Genotyping (Cytology Component) (09/12/2023 1:00 PM MAGNETIC RESONANCE IMAGING COORDINATOR) Thin prep (Pap test) 09/12/2023 1:00 PM MAGNETIC RESONANCE IMAGING COORDINATOR 09/13/2023 9:39 AM MAGNETIC RESONANCE IMAGING COORDINATOR Narrative PATHOLOGY [facility] - 09/16/2023 7:30 AM MAGNETIC RESONANCE IMAGING COORDINATOR EPIC results best viewed via link to PDF [facility] [place] [address] Note to Patients: This report may contain a detailed description of human tissue sent by a health care provider to the laboratory for pathologic evaluation. The content of this report is essential for diagnosis and may provide important critical findings. This information may be unfamiliar to patients to review without a medical professional present. It is advised that the patient review this report in the presence of a health care provider who can answer questions and explain the details. CYTOPATHOLOGY REPORT FINAL Patient Name: BONNIE PAZ Gender: F : 1975 (Age: 48) Address: [address] [place] [id number] Hospital #: [id number] Service: Gynecology Location: Patient Type: [facility] SPECIMEN Taken: 09/12/2023 Received: 09/13/2023 Accessioned: 09/13/2023 Reported: 09/16/2023 Physician(s): VASILE Giordano FINAL INTERPRETATION SOURCE OF SPECIMEN Liquid based Thin Prep pap with HPV: STATEMENT OF ADEQUACY - Satisfactory for evaluation, vaginal smear GENERAL CATEGORIZATION: - Negative for squamous intraepithelial lesion or malignancy Comments (Normal-Negative for High Risk HPV) HPV HR 16 vaginal- Negative HPV HR 18 vaginal- Negative HPV HR non 16/18 vaginal- Negative Comment: The following Other High Risk HPV types were not detected: 31, 33, 35, 39, 45, 51, 52, 56, 58, 59, 66, and 68 ADDITIONAL INFORMATION Testing was performed using the jennifer HPV assay ([employer] This test has been modified from the sewage treatment plant operator's instructions. Its performance characteristics were determined by [facility] in a manner consistent with CLIA requirements. This test has not been cleared or approved by the U.S. Food and Drug Administration. Test Performed by: [place] [address] Hospital Clinic Assistant: Damaso Ruby M.D. Ph.D.; CLIA# [id number] [email or web address]/09/16/2023 07:30 CARLOS Rivero(ASCP) Report Electronically Reviewed and Signed Out By CARLOS Rivero(ASCP) 09/16/2023 07:30:11 Cervicovaginal Cytology (Pap Test) Disclaimer: The Pap test is a screening test used to detect cervical cancer and its precursors; it is not a diagnostic procedure. False negative and false positive results do occur. Pap test results should be interpreted in the context of pertinent clinical information and biopsy results as indicated. [facility] Clinical Laboratory Improvement Amendments (CLIA) mandate that cytologic and histologic results be correlated for laboratory quality assurance specialist & improvement standards. FOR ALL HIGH-GRADE CASES we request submission of follow-up histological material and/or reports that have not been previously provided so that we may fulfill said required standards. Gross Description A. Liquid based Thin Prep pap with HPV: Vaginal - Screening ThinPrep Clinical Diagnosis and History Last Menstrual Period: unknown The patient is a 48 year old female with dysplasia. Report Images and scanned documents, if included only viewable in PDF version The performance characteristics of some immunohistochemical stains, in-situ hybridization and fluorescence in-situ hybridization tests and immunophenotyping by flow cytometry cited in this report (if any) were determined by the Surgical Pathology Department at [facility] as part of an ongoing quality tech program and in compliance with federally mandated regulations drawn from the Clinical Laboratory Improvement Act of 1988 (CLIA '88). Some of these tests rely on the use of analyte specific reagents and are subject to specific labeling requirements by the US Food and Drug Administration. Such diagnostic tests may only be performed in a facility that is certified by the Department of Health and Human Services as a high complexity laboratory under CLIA '88. The FDA has determined that such clearance or approval is not necessary. This test is used for clinical purposes. It should not be regarded as investigational or for research. Nevertheless, federal rules concerning the medical use of analyte specific reagents require that the following disclaimer be attached to the report: This test was developed and its performance characteristics determined by the Surgical Pathology Department of [facility]. It has not been cleared or approved by the U. S. Food and Drug Administration. Veronika Pappas NP LAB CYTOLOGY ORDERABLES Final R esult PATHOLOGY [facility] [address] Floor [place], [place] [phone] from Last 3 Months or Most Recently Relevant to Health Maintenance Insurance [facility] [place] [address] [employer] [facility] Address: [facility] [id number] [place] [address] [employer] [facility] [address] [facility] CHO[employer] HMO Care Teams Chisel Worker Relationship Specialty Start Date End Date Raj Ventura MD PCP - General 02/28/18
[2025-05-29 12:58] LABS: Hematocrit 41.2 % (37.0-47.0); Hemoglobin 13.4 g/dL (12.0-15.0); Immature Granulocyte Percent A 0.3 % (0-0.5); Lymphocytes Absolute Auto 2.44 K/mm3 (0.9-3.2); Mean Corpuscular HGB Conc 32.5 g/dl (32-36); Mean Corpuscular Hemoglobin 30.5 pg (26-34); Mean Corpuscular Volume 93.6 fl (80-100); Nucleated Red Blood Cells Absolute Auto 0.000 K/mm3 (0.0-0.012); Nucleated Red Blood Cells Perc 0.0 % (0.0-0.2); Platelet Count Result 237 k/mm3 (150-375); Red Blood Count 4.40 M/mm3 (4.2-5.4); White Blood Count 7.2 K/mm3 (4.5-10.0)
[2025-05-29 13:07] LABS: Alanine Aminotransferase 20 U/L (6-35); Albumin Level 4.4 g/dL (3.5-5.1); Alkaline Phosphatase 45 U/L (38-126); Anion Gap 6 mmol/L (4-12); Aspartate Amino Transferase 40 U/L (14-36); Bilirubin,Total 0.9 mg/dL (0.2-1.3); Blood Urea Nitrogen 18 mg/dL (7-17); Calcium 9.8 mg/dL (8.4-10.2); Carbon Dioxide 31 mmol/L (22-30); Chloride 103 mmol/L (98-107); Cholesterol 276 mg/dL (0-200); Estimated Glomerular Filt Rate > 60; Glucose 87 mg/dL (65-110); HDL Direct 61 mg/dL; Potassium 4.7 mmol/L (3.4-5.0); Sodium 140 mmol/L (137-145); Total Protein 7.7 g/dL (6.3-8.2); Triglycerides 68 mg/dL (<150)
[2025-05-29 13:38] LABS: Thyroid Stimulating Hormone Reflex 1.170 uIU/mL (0.465-4.68)
[2025-05-29 13:57] LABS: Hemoglobin A1C 4.9 % (<5.7)
== END 2025-05-29 09:50 | disposition home or self-care (01) ==
LOC: ANHGOSHLAB 09:50
PROVIDERS: PCP Family Medicine; Visit Provider Family Medicine
DX: E78.5 Hyperlipidemia, unspecified (principal); R73.03 Prediabetes; R74.01 Elevation of levels of liver transaminase levels
CPT/HCPCS: 36415; 80053; 80061; 83036; 84443; 85025